=== PATIENT | male | born 1980 | race African-American/Black ===

== ENCOUNTER 2016-10-17 08:20 | Emergency (ER) | payer OTHER ==
[2016-10-17 08:24] VITALS: BP 138/91; PULSE 90; RESP 20; TEMP 98.4
[2016-10-17] MEDS ORDERED: KETOROLAC 60 MG/2 ML VIAL IM STA (08:33)
--- NOTE | 2016-10-17 08:34 | ED ---
General Adult HPI - General Chief complaint: Back Pain/Injury Stated complaint: Left side pain Time Seen by Provider: 10/17/16 08:27 Source: patient, RN notes reviewed Mode of arrival: ambulatory Limitations: no limitations - History of Present Illness Initial comments: Patient's a 36-year-old male who presents emergency room today with a chief complaint of left side pain that started this morning around 3 AM. He states he was sleeping on the floor when he went to get up because of and felt increased pain to the left side. He states very tender to touch. He states worse with movements or if he coughs again. Patient states trying for the pain. He denies any other complaints or symptoms. Patient denies any recent fever, chills, shortness of breath, chest pain, back pain, abdominal pain, nausea or vomiting, numbness or tingling, dysuria or hematuria, constipation or diarrhea, headaches or visual changes, or any other complaints. - Related Data Previous Rx's Medication Instructions Recorded Hydrocortisone Cream 1 applic TOPICAL TID #1 cream..g. 10/17/16 [Hydrocortisone 1% Cream] Ibuprofen [Motrin] 600 mg PO Q6HR PRN #40 day 10/17/16 Allergies Allergy/AdvReac Type Severity Reaction Status Date / Time acetaminophen [From Vicodin] Allergy Unknown Verified 10/17/16 08:24 hydrocodone [From Vicodin] Allergy Unknown Verified 10/17/16 08:24 Review of Systems ROS Statement: Those systems with pertinent positive or pertinent negative responses have been documented in the HPI. ROS Other: All systems not noted in ROS Statement are negative. Past Medical History Past Medical History: Diabetes Mellitus History of Any Multi-Drug Resistant Organisms: None Reported Past Surgical History: No Surgical Hx Reported Past Psychological History: No Psychological Hx Reported Smoking Status: Current every day smoker Past Alcohol Use History: Occasional Past Drug Use History: Marijuana General Exam - General Exam Comments Initial Comments: General: The patient is awake and alert, in no distress, and does not appear acutely ill. Eye: Pupils are equal, round and reactive to light, extra-ocular movements are intact. No nystagmus. There is normal conjunctiva bilaterally. No signs of icterus. Ears, nose, mouth and throat: There are moist mucous membranes and no oral lesions. Neck: The neck is supple, there is no tenderness or JVD. Cardiovascular: There is a regular rate and rhythm. No murmur, rub or gallop is appreciated. Respiratory: Lungs are clear to auscultation, respirations are non-labored, breath sounds are equal. No wheezes, stridor, rales, or rhonchi. Gastrointestinal: Soft, non-distended, non-tender abdomen without masses or organomegaly noted. There is no rebound or guarding present. No CVA tenderness. Bowel sounds are unremarkable. Musculoskeletal: Normal ROM. Patient does have tenderness left lower ribs. Pain worse on palpation. Worse with movements. Strength 5/5. Sensation intact. Pulses equal bilaterally 2+. Neurological: A&O x 3. CN II-XII intact, There are no obvious motor or sensory deficits. Coordination appears grossly intact. Speech is normal. Skin: Skin is warm and dry and no rashes or lesions are noted. Psychiatric: Cooperative, appropriate mood & affect, normal judgment. Limitations: no limitations Course Vital Signs 10/17/16 08:22 Temperature 98.4 F Pulse Rate 90 Respiratory 20 Rate Blood Pressure 138/91 O2 Sat by Pulse 99 Oximetry Medical Decision Making - Medical Decision Making Patient does admit to improvement after Toradol shot here in the emergency room. He did not want to her muscle relaxer as he states he did not want to be drowsy. States he does feel better after Toradol shot. He is advised continue with anti-inflammatories. He also admits to a rash to the left forearm. He states he's had this in the past and does use hydrocortisone creams wondering if we could write him a prescription. Patient will be given a prescription for both a steroid cream and anti-inflammatories advised to return if symptoms increase or worsen or for any other concerns. Disposition Clinical Impression: Muscle strain, Contact dermatitis Disposition: HOME SELF-CARE Condition: Good Instructions: Muscle Strain (ED) Additional Instructions: Please use medication as discussed. Please follow-up with family doctor in the next 2 days of symptoms have not improved. Please return to emergency room if the symptoms increase or worsen or for any other concerns. Prescriptions: Hydrocortisone Cream [Hydrocortisone 1% Cream] 1 applic TOPICAL TID #1 cream..g. Ibuprofen [Motrin] 600 mg PO Q6HR PRN #40 day PRN Reason: Pain Referrals: Nonstaff,Physician [Primary Care Provider] - 1-2 days Donavan Lea MD [REFERRING] - 1-2 days Time of Disposition: 09:18
== END 2016-10-17 09:28 | disposition home or self-care (01) ==
LOC: EC 08:20
DX: S29.011A Strain of muscle and tendon of front wall of thorax, initial encounter (principal); L25.9 Unspecified contact dermatitis, unspecified cause; F17.200 Nicotine dependence, unspecified, uncomplicated; Z88.5 Allergy status to narcotic agent; X58.XXXA Exposure to other specified factors, initial encounter
CPT/HCPCS: 99283; 96372; J1885